=== PATIENT | female | born 1965 | race Caucasian/White ===

== ENCOUNTER 2016-12-07 08:25 | Outpatient (CLI) | payer BC ==
--- NOTE | 2016-12-07 15:06 | XRAY Report ---
COMPLETE CERVICAL SPINE: 12/07/2016 CLINICAL INDICATION: Neck injury. FINDINGS: AP, lateral, oblique, odontoid views of the cervical spine demonstrate degenerative disk a nd facet disease, with disk space narrowing worst at C6-7. There is right worse than left osseous ne ural foraminal narrowing at C5-6 and C6-7. There is no evidence of fracture or subluxation. The pre vertebral soft tissues are unremarkable. IMPRESSION: DEGENERATIVE CHANGES, WITH OSSEOUS NEURAL FORAMINAL NARROWING. NO EVIDENCE OF FRACTURE. JOB #: [id number] EXT JOB #:[id number]
--- NOTE | 2016-12-07 15:08 | XRAY Report ---
TWO-VIEW THORACIC SPINE: 12/07/2016 CLINICAL INDICATION: Spine injury. FINDINGS: Frontal and lateral views of the thoracic spine demonstrate mild degenerative disk disease . There is no evidence of fracture. Minimal S-shaped scoliosis is noted. No paraspinal hematoma is seen. IMPRESSION: MILD DEGENERATIVE CHANGES, WITH MINIMAL SCOLIOSIS. JOB #: [id number] EXT JOB #:[id number]
== END 2016-12-07 08:26 | disposition home or self-care (01) ==
LOC: DI.S 08:25
PROVIDERS: ATTEND Family Medicine
DX: M50.30 Other cervical disc degeneration, unspecified cervical region (principal); M47.892 Other spondylosis, cervical region; M51.34 Other intervertebral disc degeneration, thoracic region; M41.84 Other forms of scoliosis, thoracic region
CPT/HCPCS: 72050; 72070